=== PATIENT | female | born 1990 | race Caucasian/White ===

== ENCOUNTER 2025-07-07 13:28 | Emergency (ER) | payer BC ==
[2025-07-07] MEDS ORDERED: predniSONE 20 MG TAB ONE (14:02)
[2025-07-07] MEDS ORDERED: NEOMYCIN-POLYMYXIN-HC EAR SUSP 200 DROP/10 ML BOT ONE (14:30)
[2025-07-07] MEDS ORDERED: Acetaminophen 500 MG TAB ONE (14:33)
== END 2025-07-07 14:28 | disposition home or self-care (01) ==
LOC: BURERS 13:28
DX: H60.91 Unspecified otitis externa, right ear (principal); F17.210 Nicotine dependence, cigarettes, uncomplicated
CPT/HCPCS: J7512